=== PATIENT | female | born 1960 | race Caucasian/White ===

== ENCOUNTER 2020-01-07 10:16 | Day surgery (SDC) | payer BC, OTHER ==
[~2020-01-07] VITALS: Ht 165.1 cm; Wt 85.7 kg
[2020-01-07] MEDS ORDERED: TOPR25TA PO (10:27)
[2020-01-07] MEDS ORDERED: CHLO125TA PO (10:27)
[2020-01-07] MEDS ORDERED: BOOSTRIX/ADACEL VACCINE (DIPHTH/PERTUSS/ACELL/TETANUS) 0.5ML SYR IM ONE (11:15)
--- NOTE | 2020-01-07 11:48 | REP ---
Clinical: Laceration. Technique: AP, lateral, bilateral oblique views of the left first digit. Findings: Osseous structures are intact without acute fracture or dislocation. No obvious subcutaneous emphysema. No obvious foreign body. Impression: No osseous involvement. No foreign body. Electronically Signed by King Louis MD 01/07/2020 11:39 A
[2020-01-07] MEDS ORDERED: NS 1,000 ML IV SCH (13:48)
[2020-01-07] MEDS ORDERED: LIDOCAINE 2% 100MG/5ML SDV (FOR ANES.) As Ordered ONE (13:59)
[2020-01-07] MEDS ORDERED: propofoL 200 MG/20 ML VIAL As Ordered ONE ×2 (13:59→15:50)
[2020-01-07] MEDS ORDERED: ceFAZolin SOD 2 GM in D5W MINI-BAG PLUS 50 ML IV ONE (14:00)
[2020-01-07] MEDS ORDERED: MIDAZOLAM INJ 2MG/2ML VIAL (J2250 PER 1MG) As Ordered ONE (14:01)
[2020-01-07] MEDS ORDERED: fentaNYL 100 MCG/2 ML INJECTION (J3010) As Ordered ONE ×2 (14:02→17:04)
[2020-01-07] MEDS ORDERED: HM P99TA PO (14:13)
[2020-01-07] MEDS ORDERED: BUPIVACAINE/EPIN 0.25% 30 ML VIAL As Ordered ONE (14:21)
[2020-01-07] MEDS ORDERED: ceFAZolin 2 GM/D5W 50 ML IV BAG (J0690 PER 500MG) As Ordered ONE (14:22)
[2020-01-07] MEDS ORDERED: ceFAZolin SOD 2 GM in IV 1 EA IV ONE (15:00)
[2020-01-07] MEDS ORDERED: ACETAMINOPHEN 1000MG 100ML IV BTL (OFIRMEV) (J0131 PER 10MG) As Ordered ONE (15:42)
[2020-01-07] MEDS ORDERED: ONDANSETRON 4MG/2ML VIAL As Ordered ONE (15:58)
[2020-01-07] MEDS ORDERED: KETOROLAC 60MG 2ML VIAL As Ordered ONE (15:58)
--- NOTE | 2020-01-07 16:16 | HPE ---
DATE OF ADMISSION: 01/07/2020 CHIEF COMPLAINT: Left thumb laceration. HISTORY OF THE PRESENT ILLNESS: This 59-year-old left-hand dominant female was seen today for a left thumb laceration. She went to close a close door and the glass door cut her thumb. She has never had a previous pain or difficulties of the left upper extremity. There is a thumb laceration. This was covered with a wet gauze. She received a tetanus booster while in the emergency department under the care of the Physician [employer] (THAO Torrez. No antibiotics were given. This happened at 9:30 a.m. PAST MEDICAL HISTORY: Hypertension. Splenectomy. Heart palpitations. White coat syndrome. 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 MEDICATIONS: Metoprolol, potassium, chlorthalidone. ALLERGIES: PERCOCET and SEAFOOD. SURGICAL HISTORY: Ectopic . SOCIAL HISTORY: She is retired. 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 She has had severe carpal tunnel syndrome bilaterally due to this. She is a nonsmoker. PHYSICAL EXAMINATION: 59-year-old female, looks her stated age. Vital signs: Temperature 98.7, pulse rate 91, respiratory rate 23, blood pressure 141/81, pulse oximetry 98% on room air. Inspection of her bilateral upper extremities reveal a laceration about an inch long centered on the radial side of the thumb more towards the flexor surface at the level of the base of the proximal phalanx/base of the thumb, metacarpophalangeal (MCP) joint. This appears to be a relatively clean transverse laceration. There is normal sensation on both sides of the thumb. Capillary refill under 3 seconds. This did appear to go deep; there does appear to be a tendon laceration likely of the abductor pollicis brevis (APB) tendon. She is able to flex at interphalangeal (IP) joint of thumb, as well as at the base of the thumb, and she is able to extend at the IP joint of thumb as well as the base, but she is not able to abduct the thumb, and it is sitting in a slightly adducted position. Radiographs were reviewed left thumb. Multiple views were obtained. There is a bandage in place. This partially obscures the x-ray. There is no obvious fracture. ASSESSMENT/PLAN: A 59-year-old female with a laceration to her left thumb; it has likely lacerated the APB tendon. I recommend irrigation and debridement, tendon repair, as well as closure of the wound and splinting. She has already received a tetanus, but I will start her on Ancef 2 grams IV every 8 hours. We will order COVID rapid testing in preparation of performing this case in the operating room. In the meantime, I have placed wet gauze over top of the wound. The patient is nothing by mouth and will remain that way with fluids. I will put in preoperative orders. The specific risks of nonsurgical management versus surgery were discussed and include, but not limited to, infection, pain, stiffness, weakness, damage to surrounding structures, neurovascular injury, failure of the tendon repair, instability the thumb, need for further surgery, anesthetic complications, blood clots, and other risks. She wished to go ahead, signed the consent for surgery.
--- NOTE | 2020-01-07 17:05 | RO ---
DATE OF PROCEDURE: 01/07/2020 PREOPERATIVE DIAGNOSIS: Left thumb laceration and abductor pollicis brevis (APB) laceration. POSTOPERATIVE DIAGNOSIS: Left thumb laceration and abductor pollicis brevis laceration. Collateral ligament laceration. PLANNED PROCEDURE: Left thumb irrigation and debridement, abductor pollicis brevis repair, splinting and closure. PROCEDURE PERFORMED: Left thumb irrigation and debridement, abductor pollicis brevis repair, splinting and closure. Collateral ligament repair. SURGEON: Robi Simental MD TRAVEL MONEY ADVISOR: SMUDGER: Dr. Nichole. TYPE OF ANESTHETIC: Local and monitored anesthesia care (MAC). OPERATIVE PREAMBLE: This 59-year-old female cut her hand on a glass door. She had a deep laceration, including the APB tendon. We talked about the pros, cons, the risks and benefits of nonsurgical management versus surgery. She wished to go ahead. I reiterated the risks in preoperative holding and marked the left upper extremity and proceeded to surgery. DESCRIPTION OF PROCEDURE: The patient was brought to the operating theater. She was administered light sedation. Hibiclens was used to thoroughly clean the left upper extremity. Tourniquet was applied, 18 inch, to the upper extremity and appropriately padded. All bony prominences were padded. Sequential compression devices (SCDs) were used on the legs. Corin hugger was used to keep the patient warm. Limb was prepped and draped allowing over 3 minutes prep solution drying time. Hand table was used on the patient's left side. Preoperative time-out was performed to confirm the site, the patient and surgery. I began by thoroughly irrigating the wound using one liter of normal saline. I instilled 5 mL of 0.25% Marcaine with 1:100,000 epinephrine in and around the incision site for local anesthesia. I identified the distal end of the tendon stump. I performed gentle debridement of a small amount of muscle around that. I then followed the area proximally of tendon gap. I identified the tendon proximally in its tunnel. I placed an Allis clamp on this. This was quite near the musculotendinous junction. I performed gentle debridement of a small amount of muscle from the dorsum of the tendon in order to identify the proximal tendon stump. Delivered this into the wound. I then performed a modified locking Krackow suture with two crossing strands using a #4-0 FiberWire suture. Tendon was quite flat. Again, it was near the musculotendinous junction. There was a small longitudinal split in the tendon. I repaired this with a [id number] #5-0 Prolene monofilament suture. Tendon repair appeared stable. In addition, deep to this was a near full thickness laceration of the collateral ligament of the thumb on the more volar surface of the base of the thumb metacarpal phalangeal joint. I repaired this using horizontal mattress #4-0 FiberWire suture. This brought the thumb into a more anatomic position for pinch. I thoroughly irrigated the wound using normal saline. Subcutaneous tissues were closed with interrupted #3-0 Vicryl suture. Skin was properly opposed and then Dermabond was used to close the skin after cleaning it with a wet-and-dry dressing. Adaptic, sterile prep gauze, as well as sterile cast padding was then applied with the thumb abducted from the palm to take off tension from the pair as well as the wrist in 30 degrees of extension. Three-sided plaster of Amira casting material was then applied to hold this reduction position. This was overwrapped with a sterile 4-inch Chito bandage and allowed to harden. Tourniquet was taken down prior to the end of the case. The patient was woken up from her sedation, transferred off the operating table, and taken to the postanesthetic care unit in stable condition. All sponge, needle, and instrument counts were correct. No complications. Estimated blood loss: 5 mL. PLAN: The patient will be discharged home according to day surgery criteria. Followup in the office in a weeks time. We will change him out of the splint and into hopefully a prefabricated injection molded splint and start immediate hand therapy, early tendon mobilization.
[2020-01-07 17:30] VITALS: BP 126/77
[2020-01-07] MEDS ORDERED: ACETAMINOPHEN TAB 650MG DOSE (2X325MG) PO PRN (17:30)
[2020-01-07] MEDS ORDERED: fentaNYL 100 MCG/2 ML INJECTION (J3010) IV PRN (17:30)
[2020-01-07] MEDS ORDERED: IBUPROFEN 400 MG TAB PO PRN (17:30)
[2020-01-07] MEDS ORDERED: LR 1,000 ML IV SCH ×2 (17:30)
[2020-01-07] MEDS ORDERED: ONDANSETRON 4MG/2ML VIAL IV PRN ×2 (17:30)
[2020-01-07] MEDS ORDERED: MORPHINE 2 MG/ML 1ML VIAL (J2270) IV PRN (17:30)
== END 2020-01-07 18:16 | disposition home or self-care (01) ==
LOC: M ED 10:16 → ENRESERV 15:49 → M SDC 17:07 → ENRESERV 17:26 → M MS5PR 17:35 → M SDC 18:16
PROVIDERS: ATTEND Orthopaedic Surgery Sports Medicine
DX: S61.012A Laceration without foreign body of left thumb without damage to nail, initial encounter (principal); S56.392A Other injury of extensor or abductor muscles, fascia and tendons of left thumb at forearm level, initial encounter; S63.642A Sprain of metacarpophalangeal joint of left thumb, initial encounter; W25.XXXA Contact with sharp glass, initial encounter; Y92.89 Other specified places as the place of occurrence of the external cause; I10 Essential (primary) hypertension; R00.2 Palpitations; K76.0 Fatty (change of) liver, not elsewhere classified; Z79.899 Other long term (current) drug therapy; Z88.5 Allergy status to narcotic agent; Z91.013 Allergy to seafood; Z87.891 Personal history of nicotine dependence; Z87.81 Personal history of (healed) traumatic fracture
CPT/HCPCS: 26418; 26540; 73140; 90471; 90715; 99284; J0131; J0690; J1885; J2250; J2405; J3010; U0002